=== PATIENT | female | born 1945 | race Caucasian/White ===

== ENCOUNTER 2017-04-15 12:52 | Observation (INO) | payer MEDICARE, OTHER ==
[2017-04-15] MEDS ORDERED: Diltiazem IV* 5 MG/ML 5 ML VIAL (for loading dose/IV Push) (25 MG) IV SLOW PU ONE (14:02)
[2017-04-15] MEDS ORDERED: Diltiazem DRIP* 100 MG/100 ML ADDV.BAG IVPB ONE (14:03)
[2017-04-15 14:23] LABS: ABS Basophils 0 10^3/ul (0-0.2); ABS Eosinophils 0 10^3/ul (0-0.6); ABS Lymphocytes 1.6 10^3/ul (1.0-4.8); ABS Monocytes 0.4 10^3/ul (0-0.8); ABS Neutrophils 6.8 10^3/ul (1.5-7.7); ABS Nucleated RBC 0 10^3/ul; Eosinophil % 0.3 % (0-6); Hematocrit 40 % (35-47); Hemoglobin 13.9 g/dl (12.0-16.0); Lymphocyte % 18.1 % (25-47); Mean Corpuscular HGB Conc 35 g/dl (31-36); Mean Corpuscular Hemoglobin 32 pg (27-31); Mean Corpuscular Volume 91 fL (80-97); Mean Platelet Volume 8 um3 (7.4-10.4); Nucleated Red Blood Cells % 0; Platelet Count 281 10^3/ul (150-450); Red Blood Count 4.39 10^6/ul (4.0-5.4); Red Cell Distribution Width 13 % (10.5-15); White Blood Count 8.9 10^3/ul (3.5-10.8)
[2017-04-15 14:34] LABS: EGFR Non-African American 61.9 (>60)
--- NOTE | 2017-04-15 14:36 | RAD ---
Indication: New onset atrial fibrillation. Comparison: No relevant prior exams available on the [facility] [place] for comparison. Technique: Upright AP 1405 hours Report: Clear lungs and pleural spaces. Negative for pneumothorax. The heart, pulmonary vasculature, and mediastinal contours are unremarkable. Unremarkable osseous structures and soft tissue contours. IMPRESSION: No evidence for acute intrathoracic disease.
[2017-04-15 14:49] LABS: INR 0.93 (0.77-1.02)
--- NOTE | 2017-04-15 15:10 | RAD ---
HISTORY: Syncope, new onset atrial fibrillation COMPARISONS: None TECHNIQUE: Multiple contiguous axial CT scans were obtained of the head without intravenous contrast. FINDINGS: HEMORRHAGE/INFARCT: There is no hemorrhage or acute infarct. MASSES/SHIFT: There is no mass or shift. EXTRA-AXIAL SPACES: There are no extra-axial fluid collections. SULCI AND VENTRICLES: The sulci and ventricles are normal in size and position for the patient's stated age. CEREBRUM: There are no focal parenchymal abnormalities. BRAINSTEM: There are no focal parenchymal abnormalities. CEREBELLUM: There are no focal parenchymal abnormalities. VESSELS: The vessels are grossly normal. PARANASAL SINUSES: The paranasal sinuses are clear. ORBITS: The orbits are unremarkable. BONES AND SOFT TISSUE: No bone or soft tissue abnormalities are noted. OTHER: None IMPRESSION: NO ACUTE INTRACRANIAL PATHOLOGY.
[2017-04-15] MEDS ORDERED: DILTIAZEM IVPB ONE (16:00)
[2017-04-15] MEDS ORDERED: NS 0.9% IVPB ONE (16:00)
[2017-04-15] MEDS ORDERED: Metoprolol Tartrate IV* 1 MG/ML 5 ML VIAL IV PRN ×2 (17:22→17:30)
[2017-04-15] MEDS ORDERED: Diltiazem TAB* 60 MG PO SCH (18:00)
[2017-04-15] MEDS ORDERED: Acetaminophen TAB* 325 MG PO PRN (18:04)
[2017-04-15] MEDS ORDERED: Docusate CAP* 100 MG PO PRN (18:04)
--- NOTE | 2017-04-15 19:57 | ED ---
Endy Roman Angela, scribed for Camelia Wu MD on 04/15/17 at 1347 . Palpitations / Dysrhythmia - HPI Summary HPI Summary: This pt is a 71 y/o female presenting to [facility] via EMS for new onset of atrial fibrillation today. Pt reports she woke up felt nauseous so she went downstairs , she felt lightheaded and diaphoretic. Pt then sat down and the next thing she knows she had a syncopal episode. Pt had an unwitnessed syncope, her was out getting the paper. She thinks she passed out for a couple of minutes. She reports she had head strike on hard wood floor. Denies headache or any injuries. Pt felt she had a "motor or humming going" prior to her syncopal episode, but did not relate it to her heart. Denies chest pain, chest pressure , SOB. She sat on laid on her couch and had a cup of coffee, but notes she then felt "weak and jittery." She almost didn't call her PCP but after feeling jittery she called her PCP and was seen today. Pt was found to have afib at her PCP's office. Pt reports she does not feel like she has the flu or flu-like symptoms. Pt has had a past syncopal episode with severe stomach bug. PCP: Dr. López. Went to Dr. tobias and had an EKG. PMHx: hyperlipidemia, GERD. Pt is currently on simvastatin and omeprazole. NKDA. Surgeries: hysterectomy at age 51. FHx: [place], grandmother - RA and "bad heart", Mother - mini strokes in 40's. - History of Current Complaint Chief Complaint: EDDysrhythmPalp Time Seen by Provider: 04/15/17 13:26 Hx Obtained From: Patient Onset/Duration: Lasting Hours, Still Present Timing: Constant Severity Currently: Severe Character: Irregular Aggravating: Nothing Alleviating: Nothing Associated Signs & Symptoms: Lightheadedness - prior to syncope, Syncope, Diaphoresis - prior to syncope - Allergy/Home Medications Allergies/Adverse Reactions: Allergies Allergy/AdvReac Type Severity Reaction Status Date / Time No Known Allergies Allergy Verified 04/15/17 13:10 Home Medications: Home Medications Fluticasone NASAL SPRAY 50MCG* [Flonase NASAL SPRAY 50MCG*] 2 spray BOTH NARES DAILY 04/15/17 [History Confirmed 04/15/17] Omeprazole CAP* [Prilosec CAP* 20 MG] 20 mg PO DAILY 04/15/17 [History Confirmed 04/15/17] PMH/Surg Hx/FS Hx/Imm Hx Endocrine/Hematology History: Denies: Hx Diabetes Cardiovascular History: Reports: Hx Hypercholesterolemia GI History: Reports: Hx Gastroesophageal Reflux Disease - Cancer History Hx Chemotherapy: No Hx Radiation Therapy: No Infectious Disease History: No Infectious Disease History: Denies: Traveled Outside the [place] in Last 30 Days - Family History Known Family History: Positive: Cardiac Disease - Grandmother - "bad heart", Other - Mother: mini strokes in her 40's. [place]. - Social History Alcohol Use: None Substance Use Type: Reports: None Smoking Status (MU): Never Smoked Tobacco Review of Systems Positive: Skin Diaphoresis - prior to syncope, now resolved. Negative: Fever, Chills Positive: Palpitations. Negative: Chest Pain Negative: Shortness Of Breath Neurological: Other - lightheadedness (prior to syncope, now resolved), "jittery " Positive: Weakness, Syncope. Negative: Headache All Other Systems Reviewed And Are Negative: Yes Physical Exam - Summary Physical Exam Summary: Appearance: Ill-appearing, no pain distress, Well-nourished Skin: Warm, color reflects adequate perfusion Head: Normal Head/Face inspection Eyes: Conjunctiva clear ENT: Normal ENT inspection Neck: Supple, no nodes, no JVD Respiratory: Lungs clear, Normal breath sounds, no respiratory distress Cardio: Irregularly irregular rhythm. Rapid heart rate. No murmur, brisk capillary refill Abdomen: soft, nontender Bowel sounds: present Musculoskeletal: Strength Intact/ ROM intact. No calf tenderness. No edema. Neuro: Alert, muscle tone normal, facial symmetry, speech normal, sensory/motor intact Psychological: Normal Triage Information Reviewed: Yes Vital Signs On Initial Exam: Initial Vitals Pulse Pulse Ox 88 97 04/15/17 13:00 04/15/17 13:00 Vital Signs Reviewed: Yes - [place] Coma Scale Best Eye Response: 4 - Spontaneous Best Motor Response: 6 - Obeys Commands Best Verbal Response: 5 - Oriented Coma Scale Total: 15 Diagnostics - Vital Signs Vital Signs Temp Pulse Resp BP Pulse Ox 04/15/17 13:01 97.7 F 64 20 136/87 96 04/15/17 13:00 88 97 - Laboratory Lab Results: Lab Results 04/15/17 04/15/17 04/15/17 Range/Units 14:00 14:00 14:00 WBC (3.5-10.8) 10^3/ul RBC (4.0-5.4) 10^6/ul Hgb (12.0-16.0) g/dl Hct (35-47) % MCV (80-97) fL MCH (27-31) pg MCHC (31-36) g/dl RDW (10.5-15) % Plt Count (150-450) 10^3/ul MPV (7.4-10.4) um3 Neut % (Auto) (38-83) % Lymph % (Auto) (25-47) % [place] % (Auto) (1-9) % Eos % (Auto) (0-6) % Baso % (Auto) (0-2) % Absolute Neuts (auto) (1.5-7.7) 10^3/ul Absolute Lymphs (auto) (1.0-4.8) 10^3/ul Absolute Monos (auto) (0-0.8) 10^3/ul Absolute Eos (auto) (0-0.6) 10^3/ul Absolute Basos (auto) (0-0.2) 10^3/ul Absolute Nucleated RBC 10^3/ul Nucleated RBC % INR (Anticoag Therapy) 0.93 (0.77-1.02) APTT 36.5 H (26.0-36.3) seconds D-Dimer, Quantitative < 200 (Less Than 230) ng/mL Sodium 136 (133-145) mmol/L Potassium 4.1 (3.5-5.0) mmol/L Chloride 104 (101-111) mmol/L Carbon Dioxide 26 (22-32) mmol/L Anion Gap 6 (2-11) mmol/L BUN 18 (6-24) mg/dL Creatinine 0.90 (0.51-0.95) mg/dL Est GFR ( Amer) 79.6 (>60) Est GFR (Non-Af Amer) 61.9 (>60) BUN/Creatinine Ratio 20.0 (8-20) Glucose 106 H (70-100) mg/dL Lactic Acid (0.5-2.0) mmol/L Calcium 9.4 (8.6-10.3) mg/dL Magnesium 2.2 (1.9-2.7) mg/dL Total Bilirubin 0.30 (0.2-1.0) mg/dL AST 10 L (13-39) U/L ALT 12 (7-52) U/L Alkaline Phosphatase 58 (34-104) U/L Total Creatine Kinase 38 (10-223) U/L CK-MB (CK-2) 2.1 (0.6-6.3) ng/mL Troponin I 0.01 (<0.04) ng/mL B-Natriuretic Peptide 208 H ( - 100) pg/mL Total Protein 6.7 (6.4-8.9) g/dL Albumin 4.0 (3.2-5.2) g/dL Globulin 2.7 (2-4) g/dL Albumin/Globulin Ratio 1.5 (1-3) TSH 1.79 (0.34-5.60) mcIU/mL Thyroxine (T4) 8.16 (6.09-12.23) mcg/mL 04/15/17 04/15/17 04/15/17 Range/Units 14:00 14:00 16:40 WBC 8.9 (3.5-10.8) 10^3/ul RBC 4.39 (4.0-5.4) 10^6/ul Hgb 13.9 (12.0-16.0) g/dl Hct 40 (35-47) % MCV 91 (80-97) fL MCH 32 H (27-31) pg MCHC 35 (31-36) g/dl RDW 13 (10.5-15) % Plt Count 281 (150-450) 10^3/ul MPV 8 (7.4-10.4) um3 Neut % (Auto) 76.7 (38-83) % Lymph % (Auto) 18.1 L (25-47) % [place] % (Auto) 4.6 (1-9) % Eos % (Auto) 0.3 (0-6) % Baso % (Auto) 0.3 (0-2) % Absolute Neuts (auto) 6.8 (1.5-7.7) 10^3/ul Absolute Lymphs (auto) 1.6 (1.0-4.8) 10^3/ul Absolute Monos (auto) 0.4 (0-0.8) 10^3/ul Absolute Eos (auto) 0 (0-0.6) 10^3/ul Absolute Basos (auto) 0 (0-0.2) 10^3/ul Absolute Nucleated RBC 0 10^3/ul Nucleated RBC % 0 INR (Anticoag Therapy) (0.77-1.02) APTT (26.0-36.3) seconds D-Dimer, Quantitative (Less Than 230) ng/mL Sodium (133-145) mmol/L Potassium (3.5-5.0) mmol/L Chloride (101-111) mmol/L Carbon Dioxide (22-32) mmol/L Anion Gap (2-11) mmol/L BUN (6-24) mg/dL Creatinine (0.51-0.95) mg/dL Est GFR ( Amer) (>60) Est GFR (Non-Af Amer) (>60) BUN/Creatinine Ratio (8-20) Glucose (70-100) mg/dL Lactic Acid 0.8 (0.5-2.0) mmol/L Calcium (8.6-10.3) mg/dL Magnesium (1.9-2.7) mg/dL Total Bilirubin (0.2-1.0) mg/dL AST (13-39) U/L ALT (7-52) U/L Alkaline Phosphatase (34-104) U/L Total Creatine Kinase (10-223) U/L CK-MB (CK-2) (0.6-6.3) ng/mL Troponin I 0.02 (<0.04) ng/mL B-Natriuretic Peptide ( - 100) pg/mL Total Protein (6.4-8.9) g/dL Albumin (3.2-5.2) g/dL Globulin (2-4) g/dL Albumin/Globulin Ratio (1-3) TSH (0.34-5.60) mcIU/mL Thyroxine (T4) (6.09-12.23) mcg/mL Result Diagrams: 04/15/17 14:00 04/15/17 14:00 Lab Statement: Any lab studies that have been ordered have been reviewed, and results considered in the medical decision making process. - Radiology Chest XR Xray Interpretation: No Acute Changes - IMPRESSION: No evidence for acute intrathoracic disease. Dr. Wu has reviewed this radiology report. Radiology Interpretation Completed By: Radiologist - CT Brain CT CT Interpretation: No Acute Changes - IMPRESSION: No acute intracranial pathology. Dr. Wu has reviewed this radiology report. CT Interpretation Completed By: Radiologist - EKG 13:02 Cardiac Rate: Tachycardia EKG Rhythm: Atrial Fibrillation - at [address] Segment: Non-Specific Ectopy: None EKG Interpretation: Nml IVCT. Nml QTc. Nml axis. EKG Comparison: No Significant Change - no change compared to the one from PCP' s office today. Re-Evaluation - Re-Evaluation Second Eval Re-Evaluation Time: 16:54 Comment: I reviewed the plan to admit to [facility] with the pt and . First Eval Re-Evaluation Time: 15:00 Change: Unchanged Comment: Pt's , Michael, is present. Blood pressure is 124/71, heart rate ranges from 100-120. Pt is comfortable. Valsalva maneuver was tried with no success. Course/Dx - Course Course Of Treatment: Pt medications reviewed this visit. Chest XR is negative. Brain CT is negative. EKG shows atrial fibrillation at 147 bpm Nml IVCT. Nml QTc. Nml axis. In the ED course, the pt was given a Diltiazem drip. On re- eval at 15:00, pt's , Michael, is present. Blood pressure is 124/71, heart rate ranges from 100-120. Pt is comfortable. Valsalva maneuver was tried with no success. I discussed pt care with raven Barahona, who has agreed to admit the pt. - Diagnoses Provider Diagnoses: Syncope, New onset a-fib - Physician Notifications Discussed Care Of Patient With: Alex Liu Time Discussed With Above Provider: 16:16 Instructed by Provider To: Other - I discussed pt care with raven Barahona, who has agreed to admit the pt. - Critical Care Time Critical Care Time: 30-74 min - 30 minutes. Discharge - Discharge Plan Condition: Stable Disposition: ADMITTED TO [facility] documentation as recorded by the Endy mariee Angela accurately reflects the service I personally performed and the decisions made by , Camelia Wu MD.
[2017-04-15] MEDS ORDERED: Atorvastatin* 10 MG TAB PO SCH (21:00)
[2017-04-15] MEDS: Metoprolol Tartrate TAB* 25 MG PO SCH (21:21)
[2017-04-15] MEDS: Enoxaparin(*) 80 MG/0.8 ML SYR SUBCUT SCH (21:23)
--- NOTE | 2017-04-15 22:45 | HP ---
CC: Dr. Lemus; Aaliyah James NP * HISTORY AND PHYSICAL: DATE OF ADMISSION: 04/15/17 PRIMARY CARE PROVIDER: Aaliyah James NP. CHIEF COMPLAINT: Syncope and new onset atrial fibrillation. HISTORY OF PRESENT ILLNESS: Juanita Godoy is a 71-year-old female with history of gastroesophageal reflux disease, dyslipidemia, who stated that today in the morning she felt well and when she was walking she suddenly noted that she was nauseated. Subsequently, she passed out. She stated that this lasted seconds and when she regained consciousness she headed to go to the bathroom and had to force to have a bowel movement. She denied any abdominal pain, chest pain, or shortness of breath before or after the episode. She was not confused when she regained consciousness. She went to see her primary care provider for evaluation. She was noted to be in atrial fibrillation with rapid ventricular response. In the emergency department, she was placed on Cardizem drip and it appears that she just possibly converted to sinus rhythm which was going to be confirmed now with an EKG. Nevertheless, the patient is going to be placed on overnight observation with the diagnoses of atrial fibrillation with rapid ventricular response. PAST MEDICAL HISTORY: 1. Gastroesophageal reflux disease. 2. Seasonal allergies. 3. Dyslipidemia. 4. Status post hysterectomy for fibroids. MEDICATIONS: Include: 1. Simvastatin 20 mg daily. 2. Omeprazole 20 mg daily. 3. [place] 3 fatty acids 1 capsule daily. 4. Flonase nasal spray on an as needed basis. ALLERGIES: No known drug allergies. FAMILY HISTORY: Positive for both parents dying of lung cancer in their 80s. SOCIAL HISTORY: The patient denies any tobacco, alcohol, or drug use. She is retired, lives with her , who is her surrogate. She drinks 4 cups of coffee a day. REVIEW OF SYSTEMS: Please see history of present illness. Specifically, the patient denies any palpitations, chest pain, or shortness of breath. Her exercise tolerance has been wonderful. She denies any cardiac history in the past. The remaining 12 systems were reviewed with the patient and were otherwise negative. PHYSICAL EXAMINATION GENERAL: The patient is a very pleasant 71-year-old female who is in no acute distress. Alert, awake, and oriented x3. VITAL SIGNS: Blood pressure of 130/80, heart rate of 72 and regular right now, respiratory rate 16, oxygen saturation 97% on room air, temperature 98.6. HEENT: Head: Atraumatic, normocephalic. Eyes: Pupils are equal, reactive to light and accommodation. Oropharynx clear. Mucosa moist. NECK: Supple. No JVD. No bruits bilaterally. RESPIRATORY: Clear to auscultation bilaterally. CARDIOVASCULAR: Regular rate and rhythm. No murmur. ABDOMEN: Soft, nontender. Bowel sounds are present in all 4 quadrants. EXTREMITIES: There is no edema. Pulses are 2+ bilaterally. No clubbing, cyanosis. NEUROLOGIC: Speech clear. Cranial nerves II through XII grossly intact. Motor strength is 5/5 bilaterally. SKIN: On evaluation of skin, no ecchymotic areas or rashes noted. LAB DATA/DIAGNOSTIC STUDIES: Showed a white blood cell count of 8.9, hemoglobin of 13.9, hematocrit of 40, and platelets of 281. D-dimer below 200. Sodium of 136, potassium 4.1, chloride 104, carbon dioxide 26, BUN 18, creatinine 0.9. Liver function is unremarkable. Brain natriuretic peptide was 208, troponin of 0.01 and 0.02. TSH of 1.79. Brain CT was unremarkable. Portable chest x-ray, impression: "No evidence of acute intrathoracic disease, clear on auscultation." The patient's EKG showed atrial fibrillation with rapid ventricular response with a heart rate of 147 beats per minute with no specific ST changes in lateral leads. There was no old EKG for comparison. The current EKG was to confirm the patient's sinus rhythm, is still pending. ASSESSMENT AND PLAN: 1. New onset atrial fibrillation. It appears that the patient converted to sinus rhythm on Cardizem drip. If this is correct, the patient is going to be placed on metoprolol tartrate 12.5 mg b.i.d., with hold parameters. She is going to be placed on telemetry monitored bed and in the morning, she is going to be evaluated by Cardiology, Dr. Lemus, who was consulted. I will also obtain a transthoracic echocardiogram. At this point, there was no evidence of electrolyte abnormality or thyroid abnormality that would precipitate the event. The patient had been in her usual state of health. She does drink a fair amount of caffeine and she was educated not to do it anymore. If the patient still is in atrial fibrillation, the patient is going to be continued on Cardizem drip. I also discussed with the patient the patient's risk of cardioembolic stroke. The patient's CHADS-VASc score is 2 which puts her at 2.2% of cardioembolic stroke risk in a year. Anticoagulation was recommended. We discussed Coumadin and novel anticoagulants. All the questions were answered. The patient is aware of the risks and benefits of all the medications and the information was provided regarding Coumadin, Eliquis, Xarelto, and Pradaxa. The patient was given written information in regards to that. For the time being, she is going to discuss it with her family and she agreed to be placed on Lovenox temporarily. 2. For gastroesophageal reflux disease, the patient is going to be placed on omeprazole as previously taken. 4. For DVT prophylaxis, the patient is going to be placed on Lovenox. 5. The patient's code status is full and her surrogate is her . TIME SPENT: Approximately 70 minutes were spent on admission of this patient, more than half that time was spent [id number] with the patient during the interview and physical exam. [id number]/[facility] #: [id number] [place]
[2017-04-16 03:47] LABS: Urine Appearance Clear; Urine Blood 1+ (Negative); Urine Color Yellow; Urine Ketones Negative (Negative); Urine Protein Negative (Negative); Urine Specific Gravity 1.012 (1.010-1.030); Urine Urobilinogen Negative (Negative)
[2017-04-16 06:38] LABS: ABS Basophils 0 10^3/ul (0-0.2); ABS Eosinophils 0.1 10^3/ul (0-0.6); ABS Lymphocytes 3.1 10^3/ul (1.0-4.8); ABS Monocytes 0.5 10^3/ul (0-0.8); ABS Neutrophils 3.9 10^3/ul (1.5-7.7); ABS Nucleated RBC 0 10^3/ul; Eosinophil % 1.9 % (0-6); Hematocrit 37 % (35-47); Hemoglobin 12.5 g/dl (12.0-16.0); Lymphocyte % 40.3 % (25-47); Mean Corpuscular HGB Conc 34 g/dl (31-36); Mean Corpuscular Hemoglobin 31 pg (27-31); Mean Corpuscular Volume 91 fL (80-97); Mean Platelet Volume 8 um3 (7.4-10.4); Nucleated Red Blood Cells % 0; Platelet Count 268 10^3/ul (150-450); Red Blood Count 4.03 10^6/ul (4.0-5.4); Red Cell Distribution Width 13 % (10.5-15); White Blood Count 7.7 10^3/ul (3.5-10.8)
[2017-04-16 06:52] LABS: EGFR Non-African American 60.3 (>60)
[2017-04-16] MEDS: Enoxaparin(*) 80 MG/0.8 ML SYR SUBCUT SCH (08:15)
[2017-04-16] MEDS: Metoprolol Tartrate TAB* 25 MG PO SCH (08:15)
[2017-04-16] MEDS ORDERED: Omeprazole CAP* 20 MG PO SCH (09:00)
[2017-04-16] MEDS ORDERED: Diltiazem DRIP* 100 MG/100 ML ADDV.BAG IVPB SCH (09:00)
[2017-04-16] MEDS ORDERED: Fluticasone NASAL SPRAY 50MCG* 16 gm SPRAY BTL BOTH NARES SCH (09:00)
--- NOTE | 2017-04-16 12:41 | DCNOTE ---
Subjective Date of Service: 04/16/17 Interval History: Feels well, no c/o. She may have had palpitations at times in the past, never had syncope before. No alcohol consumpttion. She drinks 3-4 cups of coffee per day. Objective Active Medications: Acetaminophen (Tylenol Tab*) 650 mg PO Q4H PRN PRN Reason: FEVER/PAIN Apixaban (Eliquis*) 5 mg PO BID [facility] Atorvastatin Calcium (Lipitor*) 10 mg PO BEDTIME [facility] Last Admin: 04/15/17 21:22 Dose: 10 mg Docusate Sodium (Colace Cap*) 100 mg PO BID PRN PRN Reason: CONSTIPATION Enoxaparin Sodium (Lovenox(*)) 80 mg SUBCUT Q12H [facility] Last Admin: 04/16/17 08:15 Dose: 80 mg Fluticasone Propionate (Flonase Nasal [place] 50mcg*) 2 spray BOTH NARES DAILY [facility] Last Admin: 04/16/17 08:15 Dose: Not Given Metoprolol Tartrate (Lopressor Tab*) 12.5 mg PO Q12HR [facility] Last Admin: 04/16/17 08:15 Dose: 12.5 mg Omeprazole (Prilosec Cap*) 20 mg PO DAILY [facility] Last Admin: 04/16/17 08:15 Dose: 20 mg Oxygen Devices in Use Now: None Result Diagrams: 04/16/17 06:19 04/16/17 06:19 Additional Lab and Data: Lab Results 04/15/17 04/15/17 04/15/17 Range/Units 14:00 14:00 14:00 WBC (3.5-10.8) 10^3/ul RBC (4.0-5.4) 10^6/ul Hgb (12.0-16.0) g/dl Hct (35-47) % MCV (80-97) fL MCH (27-31) pg MCHC (31-36) g/dl RDW (10.5-15) % Plt Count (150-450) 10^3/ul MPV (7.4-10.4) um3 Neut % (Auto) (38-83) % Lymph % (Auto) (25-47) % [place] % (Auto) (1-9) % Eos % (Auto) (0-6) % Baso % (Auto) (0-2) % Absolute Neuts (auto) (1.5-7.7) 10^3/ul Absolute Lymphs (auto) (1.0-4.8) 10^3/ul Absolute Monos (auto) (0-0.8) 10^3/ul Absolute Eos (auto) (0-0.6) 10^3/ul Absolute Basos (auto) (0-0.2) 10^3/ul Absolute Nucleated RBC 10^3/ul Nucleated RBC % INR (Anticoag Therapy) 0.93 (0.77-1.02) APTT 36.5 H (26.0-36.3) seconds D-Dimer, Quantitative < 200 (Less Than 230) ng/mL Sodium 136 (133-145) mmol/L Potassium 4.1 (3.5-5.0) mmol/L Chloride 104 (101-111) mmol/L Carbon Dioxide 26 (22-32) mmol/L Anion Gap 6 (2-11) mmol/L BUN 18 (6-24) mg/dL Creatinine 0.90 (0.51-0.95) mg/dL Est GFR ( Amer) 79.6 (>60) Est GFR (Non-Af Amer) 61.9 (>60) BUN/Creatinine Ratio 20.0 (8-20) Glucose 106 H (70-100) mg/dL Lactic Acid (0.5-2.0) mmol/L Calcium 9.4 (8.6-10.3) mg/dL Magnesium 2.2 (1.9-2.7) mg/dL Total Bilirubin 0.30 (0.2-1.0) mg/dL AST 10 L (13-39) U/L ALT 12 (7-52) U/L Alkaline Phosphatase 58 (34-104) U/L Total Creatine Kinase 38 (10-223) U/L CK-MB (CK-2) 2.1 (0.6-6.3) ng/mL Troponin I 0.01 (<0.04) ng/mL B-Natriuretic Peptide 208 H ( - 100) pg/mL Total Protein 6.7 (6.4-8.9) g/dL Albumin 4.0 (3.2-5.2) g/dL Globulin 2.7 (2-4) g/dL Albumin/Globulin Ratio 1.5 (1-3) TSH 1.79 (0.34-5.60) mcIU/mL Thyroxine (T4) 8.16 (6.09-12.23) mcg/mL 04/15/17 04/15/17 04/15/17 Range/Units 14:00 14:00 16:40 WBC 8.9 (3.5-10.8) 10^3/ul RBC 4.39 (4.0-5.4) 10^6/ul Hgb 13.9 (12.0-16.0) g/dl Hct 40 (35-47) % MCV 91 (80-97) fL MCH 32 H (27-31) pg MCHC 35 (31-36) g/dl RDW 13 (10.5-15) % Plt Count 281 (150-450) 10^3/ul MPV 8 (7.4-10.4) um3 Neut % (Auto) 76.7 (38-83) % Lymph % (Auto) 18.1 L (25-47) % [place] % (Auto) 4.6 (1-9) % Eos % (Auto) 0.3 (0-6) % Baso % (Auto) 0.3 (0-2) % Absolute Neuts (auto) 6.8 (1.5-7.7) 10^3/ul Absolute Lymphs (auto) 1.6 (1.0-4.8) 10^3/ul Absolute Monos (auto) 0.4 (0-0.8) 10^3/ul Absolute Eos (auto) 0 (0-0.6) 10^3/ul Absolute Basos (auto) 0 (0-0.2) 10^3/ul Absolute Nucleated RBC 0 10^3/ul Nucleated RBC % 0 INR (Anticoag Therapy) (0.77-1.02) APTT (26.0-36.3) seconds D-Dimer, Quantitative (Less Than 230) ng/mL Sodium (133-145) mmol/L Potassium (3.5-5.0) mmol/L Chloride (101-111) mmol/L Carbon Dioxide (22-32) mmol/L Anion Gap (2-11) mmol/L BUN (6-24) mg/dL Creatinine (0.51-0.95) mg/dL Est GFR ( Amer) (>60) Est GFR (Non-Af Amer) (>60) BUN/Creatinine Ratio (8-20) Glucose (70-100) mg/dL Lactic Acid 0.8 (0.5-2.0) mmol/L Calcium (8.6-10.3) mg/dL Magnesium (1.9-2.7) mg/dL Total Bilirubin (0.2-1.0) mg/dL AST (13-39) U/L ALT (7-52) U/L Alkaline Phosphatase (34-104) U/L Total Creatine Kinase (10-223) U/L CK-MB (CK-2) (0.6-6.3) ng/mL Troponin I 0.02 (<0.04) ng/mL B-Natriuretic Peptide ( - 100) pg/mL Total Protein (6.4-8.9) g/dL Albumin (3.2-5.2) g/dL Globulin (2-4) g/dL Albumin/Globulin Ratio (1-3) TSH (0.34-5.60) mcIU/mL Thyroxine (T4) (6.09-12.23) mcg/mL Assess/Plan/Problems-Billing Assessment:
[2017-04-16 12:47] VITALS: BP 109/59
--- NOTE | 2017-04-16 15:03 | ECHO ---
Patient: KAM IQBAL [facility] Rec#: [id number] : 1945 Date: 04/16/2017 Age: 71y Height: 167.64 cm / 66.0 in Weight: 83.91 kg / 184.9 lbs Sex: F BSA: 1.93 Room#: [facility] Admit Date#: 04/15/2017 Type: Inpatient Referring: Jackie Gu MD Reading: Jennifer Elise MD Dividend Clerk: Arlet Riddle RDCS CC: Aaliyah James NP Transthoracic Echocardiogram Indication: New onset A-Fib BP: 122/62 HR: 63 Rhythm: NSR with PVCs Findings History: Former smoker, HLD, GERD, 4 cups of coffee/day. Technical Comments: The study quality is fair. The study is technically limited due to the patient's smoking history. Completed at 1240. Left Ventricle: The left ventricular chamber size is normal. Mild concentric left ventricular hypertrophy is observed. Global left ventricular wall motion and contractility are within normal limits. There is normal left ventricular systolic function. The estimated ejection fraction is 55-60%. Normal left ventricular diastolic filling is observed. Left Atrium: The left atrium is mildly dilated. Right Ventricle: Moderator Band present. The right ventricle is mildly dilated. The right ventricle wall thickness is mildly increased. The right ventricular global systolic function is normal. Right Atrium: The right atrium is mildly dilated. Aortic Valve: The aortic valve is trileaflet. The aortic valve leaflets are mildly thickened. There is no evidence of aortic regurgitation. There is no evidence of aortic stenosis. Mitral Valve: There is mitral annular calcification. The mitral valve leaflets are mildly thickened. There is mild to moderate mitral regurgitation. mild posterior lateral eccentricity. There is no evidence of mitral stenosis. Tricuspid Valve: The tricuspid valve leaflets are normal. There is trace tricuspid regurgitation. Unable to estimate the right ventricular systolic pressure. There is no tricuspid stenosis. Pulmonic Valve: The pulmonic valve appears normal. There is a trace pulmonic regurgitation. There is no pulmonic stenosis. Pericardium: There is no significant pericardial effusion. A pericardial fat pad is visualized. Aorta: There is no dilatation of the ascending aorta. There is no dilatation of the aortic arch. The aortic root is normal in size. Pulmonary Artery: The main pulmonary artery is not well visualized. Venous: The inferior vena cava appears normal in size. There is a greater than 50% respiratory change in the inferior vena cava dimension. Conclusions Mild concentric left ventricular hypertrophy is observed. Global left ventricular wall motion and contractility are within normal limits. The estimated ejection fraction is 55-60%. Normal left ventricular diastolic filling is observed. The right ventricle is mildly dilated and wall thickness is mildly increased. The right ventricular global systolic function is normal. The left atrium is mildly dilated. The right atrium is mildly dilated. The aortic valve leaflets are mildly thickened with normal function. There is mild to moderate mitral regurgitation, mild posterior lateral eccentricity. There is trace tricuspid regurgitation. No prior echo to compare. Measurements Name Value Normal Range RVIDd (AP) 2D 3.3 cm (0.9 - 2.6) RVDdMajor (2D) 4.5 cm (2.2 - 4.4) RVAW (2D) 0.9 cm (0.2 - 0.5) RAd ISD 4CH 5.2 cm (3.4 - 4.9) RA (A4C)W 4.5 cm (2.9 - 4.6) IVSd (2D) 1.1 cm (0.6 - 1) LVPWd (2D) 1.2 cm (0.6 - 1) LVIDd (2D) 4.7 cm (3.6 - 5.4) LVIDs (2D) 4 cm - LV FS (2D) 16 % (25 - 45) EF Teichholz (2D) 33 % - Aortic Annulus 1.9 cm (1.4 - 2.6) Ao root diameter (2D) 3 cm (2.1 - 3.5) Ascending Ao 3.1 cm (2.1 - 3.4) Aortic arch 2.5 cm (1.8 - 3.4) LA dimension (AP) 2D 4.2 cm (2.3 - 3.8) LAd ISD 4CH 5.3 cm (2.9 - 5.3) LA ISD 4CH W 4.3 cm (2.5 - 4.5) Name Value Normal Range LA ESV SP 4CH (A/L) 55 ml - LA ESV SP 2CH (A/L) 68 ml - LA ESV BP (A/L) 62 ml - LA ESV BP (A/L) index 32 ml/m2 - LA ESV SP 4CH (MOD) 50 ml - LA ESV SP 2CH (MOD) 66 ml - Name Value Normal Range MV E-wave Vmax 0.91 m/sec - MV deceleration time 210.1 msec - MV A-wave Vmax 0.57 m/sec - MV E:A ratio 1.59 ratio - LV septal e' Vmax 0.12 m/sec - LV lateral e' Vmax 0.06 m/sec - LV E:e' septal ratio 7.58 ratio - LV E:e' lateral ratio 15.17 ratio - Name Value Normal Range AV Vmax 1.3 m/sec - AV VTI 32.56 cm - AV peak gradient 7 mmHg - AV mean gradient 4.33 mmHg - LVOT Vmax 1.06 m/sec - LVOT VTI 23.69 cm - LVOT peak gradient 4.52 mmHg - LVOT mean gradient 2.53 mmHg - MAC Vmax 0.9 m/sec - Name Value Normal Range IVC diameter 1.9 cm - Name Value Normal Range PV Vmax 0.75 m/sec - PV peak gradient 2.25 mmHg -
--- NOTE | 2017-04-16 15:54 | DS ---
CC: Aaliyah James NP DATE OF ADMISSION: 04/15/2017. DATE OF DISCHARGE: 04/16/2017. HISTORY: This 71-year-old woman presented with syncope. She was in her usual state of health. Whil e she was walking she felt nauseous and passed out at home. She had otherwise not been sick that day or the day before. She never had an episode of syncope before. On questioning, she does say that pamella jarrell had a feeling like a motor running in her chest at times. This may have been her description of pa lpitations. The patient was placed on a Diltiazem drip and within a fairly short period of time converted to norm al sinus rhythm. She felt well the next day and was discharged. She will have an echocardiogram before discharge. I note TSH was normal. The patient is being started on Apixaban. FINAL DIAGNOSES: 1. Atrial fibrillation. 2. GERD. 3. Dyslipidemia. 4. Seasonal allergies. DISCHARGE MEDICATIONS: 1. Apixaban 5 mg b.i.d. 2. Metoprolol Tartrate 12.5 mg b.i.d. 3. Eureka-3 fatty acids one tablet daily. 4. Simvastatin 20 mg at bedtime. 5. Omeprazole 20 mg daily. 6. Fluticasone nasal spray two sprays both nares daily. [id number]/[facility] #: [id number]
--- NOTE | 2017-04-16 20:12 | CONS ---
Cc: Aaliyah James NP * CONSULTATION REPORT: DATE OF CONSULT: 04/16/17 REASON FOR CONSULT: Atrial fibrillation. The patient's chief complaint is loss of consciousness. HISTORY OF PRESENT ILLNESS: Juanita Godoy is a 71-year-old woman with no prior cardiac history. Yesterday she said she awoke, got out of bed, walked down the stairs, felt dizzy , not like vertigo but like she was having a blackout and then she did find herself on the floor having passed out in the kitchen. The patient felt somewhat nauseous, following that she had 2 bowel movements but no diarrhea or constipation documented and when she presented to the emergency department she was found to be in atrial fibrillation with a rapid ventricular rate. The patient denied awareness to palpitations or racing but admits that she had a sort of buzzing sensation that she thinks she has had on and off before in hindsight. Typically it will occur when she lies down at night, she estimates roughly 20 times in the last year. The patient had had 3 to 4 cups of coffee the day before, which is her usual. She denies alcohol intake, recent travel. She denies any pnzr-qxq-ptxouhq medications or recent changes in medications or activity. The patient denied any neurological problems. No problems with gait, arms, mentation, speech or comprehension with the symptoms of nausea and dizziness. She does not think she was dehydrated, she says she typically makes a point to drink fluids throughout the day. PAST MEDICAL HISTORY: The patient has a past medical history of: 1. Reflux. 2. Dyslipidemia. 3. Seasonal allergies. PAST SURGICAL HISTORY: Includes hysterectomy for fibroids. MEDICATIONS: Outpatient medications included, 1. Simvastatin 20 mg a day. 2. Omeprazole 20 mg a day. 3. [place] 3 fatty acids. 4. Flonase p.r.n. Inpatient medications added, 1. Eliquis 5 mg b.i.d. 2. She was on a diltiazem drip and oral diltiazem 60 mg q. 6 hours. 3. She was on Colace and Tylenol. FAMILY HISTORY: Significant, her parents of lung cancer. No history of coronary artery disease or rhythm disorders identified. SOCIAL HISTORY: As above, she drinks 3 to 4 cups of coffee a day. Denies any recent alcohol intake. No history of alcohol abuse. Nonsmoker. She is retired and lives with her . REVIEW OF SYSTEMS: See history of presents illness. No recent travel, change in medications. No recent viruses. No recent change in bowel or bladder habits. Appetite has been good. No fevers, chills, sweats. It was significant in that she says she will have occasional episodes with a buzzing where she will feel like her chest will be on fire and this happened on April 06. She attributed that sensation to heartburn and reflux and they occurred after eating at [employer]. She also felt at that time as if her body was full of fluid. With these symptoms, she awoke at night after eating at the [employer] restaurant. No neurological changes, no recent upper or lower respiratory tract symptoms. No change in exercise ability/functional ability. No orthopnea , no PND. No chest pain other than that mentioned above. All other 14 review of systems was negative. PHYSICAL EXAM: The patient is 5 feet 6 inches, weighs 184 pounds with a BMI of 30. Vital Signs: On arrival to the emergency department showed blood pressure 136/87 with a heart rate of 140. She is afebrile. Respiratory rate 20 and oxygen saturation 96%. Vital sings at the time I saw her, blood pressure 109/59 , pulse was 65 and regular, she had been afebrile overnight. General Appearance : Mild to moderately overweight older woman lying, getting into an echo during my exam; therefore not fully examined. Psychologically pleasant and cooperative. Neurologically awake, alert and oriented to person, place and time. Grossly normal sensate and motor function in bed. Her speech was articulate, comprehension was good. She was following commands for the laser technician well. Skin: Warm, dry. No cyanosis or rashes. Unable to complete adequate lung or cardiac exam. Skin was warm and dry. Pupils were equal and round. Mucous membranes were moist. Neck without increased JVP. DIAGNOSTIC STUDIES/LAB DATA: The patient's 12-lead ECG on arrival to the emergency department 04/15/17 at 1307 confirmed atrial fibrillation with a rapid ventricular rate of 147 beats per minute, QRS axis +60 with normal interventricular conductions times. Some mild nonspecific ST changes. EKG by April 15, had shown she has converted to normal sinus rhythm, 70 beats a minute with inverted T-waves across the precordial leads. ECG #3 done this morning shows normal sinus rhythm, 65 beats per minute with normal AV and IV conduction times with persistently inverted T waves across the precordial leads and flattened T waves in the inferolateral leads I and aVL. Labs show sodium 136, potassium 4.1, chloride 103, bicarb 26, BUN 19, creatinine 0.92, glucose 96, on arrival 106. Magnesium 2.2. AST of 10, ALT 12. Troponin #1 of 0.01, troponin #2 of 0.02, troponin #3 of 0.01. TSH 1.79, thyroxine 8.16. Urinalysis 1+ positive for blood, negative for leukocyte esterase, negative for nitrites. Chest x-ray in the emergency department showed no evidence of acute pulmonary disease and transthoracic echo completed today showed mild left ventricular hypertrophy, ejection fraction 55% to 60% with dpof-yx-ylszwgmz mitral insufficiency. IMPRESSION: In summary, Ms. Juanita Godoy is a 71-year-old woman who presented with a syncopal episode and atrial fibrillation with rapid ventricular rate for which she was almost completely asymptomatic. Her ECG in normal sinus rhythm was abnormal with inverted T waves, she had normal troponins and her echocardiogram showed mild left ventricular hypertrophy with oaan-ce-fznwgbvf mitral insufficiency. 1. Regarding the patient's paroxysmal atrial fibrillation, by history she may be having this quite frequently based on the buzzing sensation she has had and I do agree with Dr. Narayanan's plans of sending her home on oral beta el and Eliquis. Additionally we may obtain some information regarding the patient's syncopal event. I would additionally recommend that a outpatient event monitor, MCOT variety be obtained to see if we can evaluate her for asymptomatic atrial fibrillation burden and to evaluate the need for possible stronger antiarrhythmics and pure beta blockers. 2. For the patient's sensation that she is on fire and history of dyslipidemia and her history of atrial fibrillation and abnormal ECG in sinus rhythm I would recommend additionally getting a treadmill stress test but this can be done as an outpatient as her troponins are negative putting her on a lower risk category. 3. For her history of dyslipidemia, I do not see lipids documented in the [facility] system and if these have not been updated recently, we can do so as an outpatient. 4. For the patient's mitral insufficiency, it is possible that this is secondary to her atrial fibrillation as her valve leaflets do not appear to have significant structural abnormalities, but if this is chronic it could also be contributing to her propensity for atrial fibrillation. My hope is that beta blockade would help this. We could get her stress test as a stress echo looking at the degree of mitral insufficiency at rest and post exercise as well as PA pressures and she should follow up with Cardiology in the office to complete her cardiac evaluation as she left without full exam and without me reviewing any of this discussion with her. 5. Syncope: this could be related to the afib itself, to slow sinus node recovery post spontaneous cardioversion or related to low blood pressure, possible vagal response to nausea. An event monitor ordered as above, additional evaluation can be added as indicated. Thank you for allowing me to assist in this nice woman's care. [id number]/[facility] #: [id number] [place]
[2017-04-16] MEDS ORDERED: Apixaban* 5 MG TAB PO SCH (21:00)
[2017-04-17] MEDS ORDERED: Rivaroxaban TAB(*) 10 MG PO SCH (09:00)
== END 2017-04-16 14:00 | disposition home or self-care (01) ==
LOC: ED 12:52 → MEDTELE 17:23
PROVIDERS: ADMIT Internal Medicine; ATTEND Internal Medicine
DX: I48.91 Unspecified atrial fibrillation (principal); Z79.01 Long term (current) use of anticoagulants; K21.9 Gastro-esophageal reflux disease without esophagitis; E78.5 Hyperlipidemia, unspecified; J30.2 Other seasonal allergic rhinitis; Z79.899 Other long term (current) drug therapy; I51.7 Cardiomegaly
CPT/HCPCS: 36415; 70450; 71045; 80048; 80053; 81003; 81015; 82550; 82553; 83605; 83735; 83880; 84436; 84443; 84484; 85025; 85379; 85610; 85730; 93005; 93306; 96372; 96374; 96376; 99291; A9270-GY; G0378; J1650

== ENCOUNTER → 2017-09-02 10:08 | Day surgery (SDC) | payer MEDICARE, OTHER ==
[~2017-09-02 10:08] MED LIST: Diazepam TAB(*) 5 MG ONE; Heparin 2 UNITS/ML IVPREMIX* 1,000 ML IV ONE; Heparin(*) 1000 UNIT/ML 10 ML VIAL CATH LAB IV ONE; Iodixanol* (CONTRAST) 320 MG/ML 100 ML SDV ONE; Lidocaine 1% INJ* 10 MG/ML 30 ML SDV ONE; Midazolam* 1 MG/ML 10 ML VIAL (10 MG) ONE; NS 0.9% 1000 ML* 1,000 ML IV SCH; VERAPAMIL 2.5 MG/ML 2 ML VIAL ** 5 mg/2 ml ONE; diPHENhydraMINE PO* 25 MG ONE; fentaNYL* 50 MCG/ML 2 ML VIAL (100 MCG VIAL) ONE; nitroGLYCERIN DRIP* 25,000 MCG/250 ML BTL ONE
[2017-09-02 16:37] VITALS: BP 99/49
--- NOTE | 2017-09-03 11:39 | CATH ---
CC: Jennifer Elise MD; Usha López MD * CARDIAC CATHETERIZATION REPORT: DATE OF PROCEDURE: 09/02/17 - [facility] CATH INDICATION FOR THE PROCEDURE: I was asked by Dr. Elise to perform cardiac catheterization in light of the patient having an abnormal stress echo with question of an old focal posterior wall myocardial infarction with mild ST segment depression and runs of SVT as well as with a syncopal episode and a history of wide complex tachycardia, suggesting ventricular tachycardia. The procedure was coronary arteriography, left heart catheterization, left ventriculography. The patient was interviewed and examined in the holding area where the risks and benefits were explained. The right radial artery was assessed and found to be of appropriate size for proceeding. The patient was brought to the cardiovascular laboratory where a formal timeout was performed for the procedure. Laboratory results pre-catheterization: Hemoglobin and hematocrit of 13 and 39 , platelet count of 229,000. BUN and creatinine of 16 and 0.9. Sodium 139, potassium 4.6, chloride 104, bicarb 28. EQUIPMENT UTILIZED: 1. Radial artery sheath - a 6-Spanish Glidesheath. 2. Diagnostic catheter - a TIG4 5-Spanish catheter. 3. Guidewire for catheter exchanges - a Gaona exchange length curved guidewire. 4. Left heart catheter - A 5-Spanish PIG Performa radial. MEDICATIONS GIVEN PRE-PROCEDURE: 1. Valium 2.5 mg. 2. Benadryl 25 mg p.o. 3. The patient had taken aspirin 81 mg a day in preparation for the procedure for possible intervention. DESCRIPTION IN DETAIL: The patient was brought into the cardiovascular laboratory where a formal time-out was performed. The patient was prepped and draped in a sterile fashion. Under ultrasound guidance, the right radial artery was cannulated and a Glidesheath was placed. Diagnostic coronary arteriography was performed followed by left heart catheterization. At the end of this, the sheath was removed and hemostasis was obtained with a VascBand. The total contrast used was 76 cc of Omnipaque dye. The radiation exposure included 4.6 minutes of fluoro time. The air kerma radiation was 487 milligray. The DAP radiation was 2638 microgray per sq. m. RESULTS: HEMODYNAMIC DATA: Left heart catheterization - central aortic pressure recorded at 139 with a left ventricular end diastolic pressure of 12. Central aortic pressure recorded at 140/60 with a mean of 95. LEFT VENTRICULOGRAPHY: Performed in the GODINEZ projection utilizing a total of 36 cc of Visipaque dye at a rate of 13 cc per hour revealed a symmetrical contraction of the left ventricle. There was no significant focal wall motion abnormality seen. Overall ejection fraction was estimated at 55% to 60%. CORONARY ARTERIOGRAPHY: A. Left coronary artery: 1. Left Main - short in nature with no significant obstruction. 2. Left anterior descending artery - the left anterior descending artery traversed to the apical region and minimally onto the distal inferior wall. There was no significant narrowing seen throughout the course of the vessel with minimal minor plaquing in the proximal portion at first septal mold breaker. The degree of lumen reduction was noted to be approximately maybe 25% to 30% at most. The diagonal branches had no significant disease. 3. Circumflex artery - a nondominant vessel supplying 2 thin first obtuse marginal branches followed by a large trifurcating obtuse marginal branch. There was no significant disease throughout the course of the circumflex into the large trifurcation of marginal branch. The continuation of circumflex supplied a somewhat small caliber low-lying posterior left ventricular branch. No focal lesion was noted. B. Right coronary artery - a dominant vessel supplying the PDA and multiple thin posterior left ventricular branches. There was no significant lesion seen throughout the body of the right coronary artery or the PDA. The posterior LV branches were short in nature and small in caliber, but without focal stenosis. OVERALL ASSESSMENT: Normal left ventricular systolic function with mild coronary artery disease involving the proximal LAD at the first septal mold breaker with the degree of narrowing noted to be 25% to 30%. This information was shared with Dr. Jennifer Elise, the patient's primary bedspread inspector, who will utilize it in further management of the patient's arrhythmic issues. The patient will have followup with Dr. Elise in the office for ongoing management. [id number]/[facility] #: [id number] [facility]ITAL[facility]icki
== END | disposition home or self-care (01) ==
LOC: CHICATH 10:08
PROVIDERS: ATTEND Internal Medicine Cardiovascular Disease
DX: R55 Syncope and collapse (principal); I47.1 Supraventricular tachycardia; I25.10 Atherosclerotic heart disease of native coronary artery without angina pectoris; Z79.01 Long term (current) use of anticoagulants; Z87.891 Personal history of nicotine dependence; I47.2 Ventricular tachycardia; I42.9 Cardiomyopathy, unspecified; E78.00 Pure hypercholesterolemia, unspecified
CPT/HCPCS: 76937; 93458; A9270-GY; J1644; J2250; J3010